=== PATIENT | male | born 1950 | race Caucasian/White ===

== ENCOUNTER 2021-10-29 20:12 | Inpatient (IN) | payer MEDICARE, SELFPAY ==
--- NOTE | ~2021-10-29 | XR_ITS ---
EXAMINATION: XR chest 1V portable EXAM DATE: 10/29/2021 21:24 INDICATION: ams; found unresponsive this P.M;uncommunicative. TECHNIQUE: Portable AP frontal chest x-ray was obtained. There is no prior study for comparison. FINDINGS: There is small to moderate amount of ill-defined bilateral airspace disease suspected, prob ably edema or pneumonia. The cardiac silhouette is enlarged. There is pulmonary vascular congestion. There is no pneumothorax suspected. There are no pleural effusions. There are no osseous abnormalit ies identified. IMPRESSION: 1. Cardiomegaly, congestion. 2. Ill-defined bilateral edema or pneumonia. Reviewed, dictated and finalized at location A. IS MANAGER
--- NOTE | ~2021-10-29 | XR_ITS ---
XR chest 1V portable 11/04/2021 05:43 Indication: CovidPneumonia Procedure: AP portable chest Comparison: 10/29/2021 Findings: Patchy bilateral airspace disease, consistent with pneumonia. Cardiomegaly. No significant effusion or pneumothorax. No acute osseous abnormality. Impression: 1: Patchy bibasilar airspace disease, compatible with pneumonia. No significant change. Reviewed, dictated and finalized at location A. EDICAL ENGINEERING SUPERVISOR Impression: 1: Patchy bibasilar airspace disease, compatible with pneumonia. No significant change.
--- NOTE | ~2021-10-29 | CT_ITS ---
EXAMINATION: CT brain [facility] EXAM DATE: 10/29/2021 21:18 INDICATION: Altered mental status. Slurred speech. TECHNIQUE: Spiral CT of the head was performed without contrast. Axial, coronal and sagittal images were reviewed. The dose-length product (DLP) for this examination was 681.00 mGy-cm. The exposure w as tailored according to patient size, and iterative reconstruction (ASIR) was used as additional dos e reduction technique. There is no prior study for comparison. FINDINGS: There is no acute intraparenchymal hemorrhage. No evidence of intraparenchymal brain mass lesion. No evidence of acute infarction. Please note that initial head CT has limited sensitivity f or small or acute infarctions. Old left thalamic lacunar infarction. There is mild to moderate shruti ventricular and subcortical hypodensity, nonspecific but probably related to small vessel ischemic di sease. There is mild to moderate prominence of the sulci and ventricles related to cerebral atrophy . There is intracranial carotid arteriosclerosis. There are no extra-axial collections. There is no mass effect or midline shift. The orbits are unremarkable. Soft tissue is unremarkable. The vis ualized sinuses and mastoid air cells are well aerated. IMPRESSION: 1. No acute intracranial findings. 2. Chronic age related findings. 3. Punctate old left thalamic lacunar infarction. Reviewed, dictated and finalized at location A. RITY TEAM LEAD
--- NOTE | ~2021-10-29 | US_ITS ---
EXAMINATION: US carotid duplex BI DATE: 10/30/2021 16:55 INDICATION: Altered mental status TECHNIQUE: Grayscale, color Doppler, and pulsed Doppler images of the cervical carotid arteries were obtained. The degree of vessel stenosis is placed in one of the following categories: normal, <50%, 5 0-69%, >=70% but less than near-occlusion, near-occlusion, or total occlusion. Note that percent sten osis relative to normal distal artery lumen diameter is indirectly measured from velocity measurement s as described by Rashel, et al. Radiology 2003; 229:340-346. COMPARISON: None. FINDINGS: RIGHT: The right common carotid artery (CCA) peak systolic velocity (PSV) is 105 cm/s. The right internal ca rotid artery (ICA) PSV is 86 cm/s. The right ICA end-diastolic velocity (EDV) is 24 cm/s. The right I CA/CCA PSV ratio is 0.8. Grayscale and color Doppler images yield an estimate of <50% diameter reduct ion from plaque in the ICA. The external carotid artery (ECA) PSV is 109 cm/s. There is antegrade lyndsey w in the right vertebral artery. LEFT: The left CCA PSV is 93 cm/s. The left ICA PSV is 125 cm/s. The left ICA EDV is 44 cm/s. The left ICA/ CCA PSV ratio is 1.3. Grayscale and color Doppler images are borderline for estimated 50-69% diameter reduction from plaque in the ICA. The ECA PSV is 175 cm/s. There is antegrade flow in the left verte bral artery. IMPRESSION: 1. <50% stenosis in the right internal carotid artery. 2. Borderline velocity criteria for a 50-69% stenosis in the left internal carotid artery. Reviewed, dictated and finalized at location B. ICIAN ASST IMPRESSION: 1. <50% stenosis in the right internal carotid artery. 2. Borderline velocity criteria for a 50-69% stenosis in the left internal [place] tid artery.
[2021-10-29 20:23] VITALS: BP 106/68; PULSE 70; RESP 20; TEMP 37.7; O2SAT 99
--- NOTE | 2021-10-29 20:56 | ECG_ITS ---
Measurements Intervals [place] Rate: 73 P: 71 FL: 194 QRS: -25 QRSD: 113 T: 16 QT: 372 QTc: 411 Interpretive Statements SINUS RHYTHM INTRAVENTRICULAR CONDUCTION DELAY DELAYED PRECORDIAL R/S TRANSITION CONSIDER INFERIOR INFARCT, AGE INDETERMINATE ST ELEVATION IN ANTEROLAT/HIGH LAT LEADS- PROBABLY EARLY REPOLARIZATION ABNORMALITY ABNORMAL ECG Electronically Signed On 10-30-2021 6:20:01 FUNDRAISING SPECIALIST by Monty Mo D.O.
[2021-10-29 21:13] LABS: Basophils Percent Auto 0.4 % (0.2-1.2); Hematocrit 45.2 % (42.0-52.0); Hemoglobin 14.2 g/dL (14.0-18.0); Immature Granulocyte Absolute 0.01 K/mm3 (0.00-0.031); Immature Granulocyte Percent A 0.4 % (0-0.5); Lymphocytes Absolute Auto 0.57 K/mm3 (0.9-3.2); Lymphocytes Percent Auto 24.6 % (18.3-44.2); Mean Corpuscular HGB Conc 31.4 g/dl (32-36); Mean Corpuscular Hemoglobin 22.6 pg (26-34); Mean Corpuscular Volume 71.9 fl (80-100); Mean Platelet Volume 8.4 fl (7.4-10.4); Monocytes Absolute Auto 0.3 K/mm3 (0.1-0.6); Monocytes Percent Auto 11.2 % (2.6-8.5); Neutrophils Absolute Auto 1.5 K/mm3 (1.3-6.7); Neutrophils Percent Auto 63.4 % (45.5-73.1); Platelet Count Result 149 k/mm3 (150-375); Red Blood Count 6.29 M/mm3 (4.6-6.20); Red Cell Distribution Width 19.1 % (11.5-14.5); White Blood Count 2.3 K/mm3 (4.5-10.0)
[2021-10-29 21:24] LABS: Alanine Aminotransferase 43 U/L (4-50); Albumin Level 4.1 g/dL (3.5-5.1); Alkaline Phosphatase 40 U/L (38-126); Anion Gap 10 mmol/L (8-16); Aspartate Amino Transferase 65 U/L (17-59); Bilirubin,Total 0.5 mg/dL (0.2-1.3); Blood Urea Nitrogen 18 mg/dL (9-20); Calcium 8.2 mg/dL (8.4-10.2); Carbon Dioxide 29 mmol/L (22-30); Chloride 91 mmol/L (98-107); Estimated CRCL calculation 52 ml/min; Estimated Glomerular Filt Rate 43; Glucose 96 mg/dL (65-110); Potassium 4.2 mmol/L (3.4-5.0); Sodium 130 mmol/L (137-145)
--- NOTE | 2021-10-29 21:42 | ED.GENADULT ---
HPI - General Adult General Chief complaint: Altered Mental Status Stated complaint: LETHARGIC, NOT SEEN IN A WHILE BY NEIGHBOR Time Seen by Provider: 10/29/21 20:57 Source: patient, EMS and RN notes reviewed History of Present Illness HPI narrative: Patient is brought by EMS because his neighbor has not seen him for 3 days and found him unresponsive. Neighbor called EMS. Patient has no complaint, but does appear confused. He has some chronic right knee pain. Related Data Home Medications Medication Instructions Recorded Confirmed alprazolam 1 mg PO QID 10/30/21 10/30/21 brimonidine [Alphagan P] 1 drp EACH EYE BID 10/30/21 10/30/21 bupropion HCl 300 mg PO DAILY 10/30/21 10/30/21 chorionic gonadotropin, human See Rx Instructions .ROUTE .COMPLEX 10/30/21 10/30/21 [Pregnyl] lisinopril 10 mg PO DAILY 10/30/21 10/30/21 rivaroxaban [Xarelto] 15 mg PO DAILY 10/30/21 10/30/21 sotalol 120 mg PO BID 10/30/21 10/30/21 trazodone 50 mg PO HS 10/30/21 10/30/21 Allergies Allergy/AdvReac Type Severity Reaction Status Date / Time No Known Allergies Allergy Unverified 08/30/14 09:51 Review of Systems Review of Systems: ROS unobtainable: Yes unobtainable due to mental status Musculoskeletal: Musculoskeletal: Reports as per HPI and Reports other (right knee pain) [facility] Past Medical History Medical History (Updated 10/30/21 @ 11:25 by Zoila Davis MD) Atrial fibrillation Chronic anticoagulation CVA (cerebral vascular accident) Punctate old left thalamic lacunar infarct noted on CT 10/30/2021 Glaucoma Surgical History Surgical History (Updated 10/30/21 @ 04:56 by Francine Mcallister DO) Normal colonoscopy (2013) Family History Family History Other Family history of chronic obstructive pulmonary disease Social History Social History (Updated 10/30/21 @ 09:36 by Francine Mcallister DO) Social History: 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 He is . Smoking status: Never smoker Alcohol intake: never Spiritual care concerns: No Exam Const: General: no acute distress and well developed Orientation/consciousness: oriented to person, oriented to place and confusion HENMT: Head: normocephalic Ears: external ears normal General nose exam: Normal external nose present Eyes: General: appearance normal, both eyes and all related structures Conjunctivae: conjunctivae normal Neck: Neck: normal visual inspection and full ROM Chest: Chest palpation & inspection: normal inspection of the chest and no tenderness Resp: Effort & Inspection: normal respiratory effort Auscultation: clear to auscultation bilaterally Cardio: Rate: regular rate Rhythm: regular rhythm GI: GI Palp: No abdominal tenderness and Yes Soft to palpation Skin: General skin exam: normal color and turgor normal Neuro: General: oriented to person, oriented to place and confusion Cognition (Neuro): abnormal cognition Extrem: General: normal to inspection, full ROM and no pedal edema Psych: Appearance: grossly normal Mental Status: mental status grossly normal Affect: normal affect Course Consultations Consultation #1: Discussed with Dr. Mcallister, who agrees to admit. Date: 10/29/21 Time: 23:02 Vital Signs Vital signs: Vital Signs Temperature 37.7 C H 10/29/21 20:23 Pulse Rate 70 10/29/21 20:23 Respiratory Rate 20 10/29/21 20:23 Blood Pressure 106/68 10/29/21 20:23 Pulse Oximetry 99 10/29/21 20:23 Temperature 37.9 C H 10/30/21 09:22 Pulse Rate 77 10/30/21 09:23 Respiratory Rate 16 10/30/21 08:00 Blood Pressure 120/63 10/30/21 08:00 Pulse Oximetry 93 10/30/21 08:00 Medical Decision Making Vital Signs Vital Signs: Vital Signs Temperature 37.7 C H 10/29/21 20:23 Pulse Rate 70 10/29/21 20:23 Respiratory Rate 20 10/29/21 20:23 Blood Pressure 106/68 10/29/21 20:23 Pulse Oximetry 99 10/29/21 20:23 Temperatur
[2021-10-29 21:50] VITALS: BP 104/66; PULSE 72; RESP 23; TEMP 37.5; O2SAT 96
[2021-10-29 22:07] LABS: Ethanol < 10 mg/dL (<10)
[2021-10-29 22:21] LABS: NT Pro B Type Natriuretic Pept 290 pg/mL (5-100)
[2021-10-29 22:34] VITALS: BP 125/84; PULSE 71; RESP 22
[2021-10-29 22:53] LABS: EDCOVIDSCREEN Positive (Negative)
[2021-10-29 23:38] LABS: Add Urine Microscopic? YES; Appearance Urine Clear (Clear); Bacteria Urine Trace /hpf; Bilirubin Urine Negative (Negative); Blood Urine Negative (Negative); Color Urine Amber (Yellow); Glucose Urine UA Negative (Negative); Ketones Urine 1+ mg/dL (Negative); Leukocyte Esterase Ur Negative LEU/UL (Negative); Mucus Urine Heavy /lpf; Nitrate Urine Negative (Negative); Protein Urine 2+ mg/dL (Negative); RBC Urine 0-2 /hpf (0-2); Specific Grav Ur 1.024 (1.001-1.035); Squamous Epithelial Cell Urine Rare /hpf (Few); WBC Urine 0-3 /hpf
[2021-10-29 23:41] LABS: Creatine Kinase 366 U/L (55-170)
[2021-10-29 23:45] VITALS: BP 107/68; PULSE 72; RESP 20
[2021-10-29 23:51] LABS: Amphetamine Screen Urine Negative (Negative); Barbiturate Screen Urine Negative (Negative); Benzodiazepines Screen Urine Positive (Negative); Cannabinoid Screen Urine Negative (Negative); Cocaine Screen Urine Negative (Negative); Methadone Screen Urine Negative (Negative); Opiate Screen Urine Negative (Negative); Phencyclidine Screen Urine Negative (Negative)
[2021-10-30] VITALS (13 sets, daily range): BP systolic 120–136; BP diastolic 63–71; PULSE 68–80; RESP 16–23; TEMP 37.3–37.9; O2SAT 91–99; BMI 35.7
[2021-10-30] MEDS: SODIUM CHLORIDE 0.9% IV 1,000 ML 100 ML IV CONT ×3 (00:57→15:36)
--- NOTE | 2021-10-30 02:12 | PC.NURSE ---
attemted to call report nurse will call back
--- NOTE | 2021-10-30 03:28 | ADMGEN ---
This patient, Deshaun Rolle, was admitted to [facility] Surg Room 307-01. Patient/family oriented to hospital policies and general routines including ID bracelet, bed and alarms, visiting hours, pain management, procedures, bathroom and other care routines, personal items, smoking policy, room service/diet, and visiting hours. Information on how to activate the Rapid Response Team has been discussed. Patient/Family are encouraged to report perceived risks to care and to ask questions if they do not understand what they are told or what they should do.
--- NOTE | 2021-10-30 04:39 | PM.IMHP ---
H&P: HPI History of Present Illness Date/Time: 10/30/21 04:39 Chief Complaint: Found less responsive by neighbor Narrative: 71-year-old male with past medical history of glaucoma, anxiety, hypertension and atrial fibrillation on chronic anticoagulation who was found at home less responsive by a neighbor. Neighbor had called ambulance because he had not seen him for 3 days. When EMS arrived at the patient's home the patient was alert orient x2. The patient was sitting on the sofa somewhat reclining and was responsive to verbal stimuli. He was somewhat lethargic and had slurred speech. On arrival to the ER, the patient was oriented to person and place but thought the month was significantly confused as to the month and year. At the time of my evaluation the patient was lethargic and encephalopathic. He kept falling asleep during my evaluation. He was alert oriented to the month and year but had be prompted answer questions multiple times. The patient could only tell me that he was feeling sick. He could not tell me if he had been having cough for fevers. The patient had just repeated that he was sick. The patient then asked for the urinal. When I handed the patient the urinal he was able to use the urinal without incident. Unfortunately at the same time he also was incontinent of stools. Nursing staff reports that the patient has been incontinent of stool each time he has urinated. He denies having any abdominal pain. He can name the president and knows that he is at [facility]. He is moving all extremities equally and does follow simple commands but has to be prompted several times to do so. He is unable to tell me if he has had any ill contacts. He denies having any pain. Review of Systems Review of Systems: 12 systems were reviewed with pertinent positives and negatives per HPI. Except as documented in the HPI, all other systems were reviewed and are negative. 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 He is . Smoking status: Never smoker Alcohol intake: never Spiritual care concerns: No Meds Home Medications and Allergies Home Medications Medication Instructions Recorded Confirmed Type alprazolam 1 mg PO QID 10/30/21 10/30/21 History brimonidine [Alphagan P] 1 drp EACH EYE BID 10/30/21 10/30/21 History bupropion HCl 300 mg PO DAILY 10/30/21 10/30/21 History chorionic gonadotropin, human See Rx Instructions .ROUTE .COMPLEX 10/30/21 10/30/21 History [Pregnyl] lisinopril 10 mg PO DAILY 10/30/21 10/30/21 History rivaroxaban [Xarelto] 15 mg PO DAILY 10/30/21 10/30/21 History sotalol 120 mg PO BID 10/30/21 10/30/21 History trazodone 50 mg PO HS 10/30/21 10/30/21 History Allergies Allergy/AdvReac Type Severity Reaction Status Date / Time No Known Allergies Allergy Unverified 08/30/14 09:51 Vital Signs Vital Signs - 24 hr 10/29/21 20:23 10/29/21 21:50 10/29/21 22:34 Temperature 99.8 F H 99.5 F Pulse Rate 70 72 71 Respiratory Rate 20 23 H 22 H Blood Pressure 106/68 104/66 125/84 Pulse Oximetry 99 96 10/29/21 23:45 10/30/21 03:05 Temperature 99.5 F Pulse Rate 72 77 Respiratory Rate 20 22 H Blood Pressure 107/68 136/70 Pulse Oximetry 93 Exam Narrative: PHYSICAL EXAM: WEIGHT 116.3 kg BMI 35.8 General: Overweight, no acute distress, intermittent snoring
--- NOTE | 2021-10-30 06:00 | ECHO_ITS ---
Patient Info Name: Deshaun Rolle Age: 71 years : 1950 Gender: Male Ht: 72 in Wt: 260 lbs BSA: 2.49 m2 HR: 69 bpm BP: 136 / 70 mmHg Heart Rhythm: Sinus Rhythm Exam Date: 10/30/2021 11:32 AM Exam Location: [facility] Pulmonary Patient Status: Outpatient Admit Date: 10/29/2021 Staff Ordering Physician: Zoila Davis MD [place] [employer] Operator: Avinash Santillan RDCS, RT Attending Provider: Matilde Saldana PA-C Referring Physician: Ryan COMBS; Exam Type: CA echo doppler color flow Study Info Indications R53.1 - Weakness Complete two-dimensional, color flow and Doppler transthoracic echocardiogram is performed. Summary 1. Complete two-dimensional, color flow and Doppler transthoracic echocardiogram is performed. 2. Difficult study with limited views. Regional wall motion assessment limited due to poor endomyocardial border definition in several views. 3. Left ventricular systolic function is normal, estimated at 55-60%. 4. There is moderately increased left ventricular wall thickness. 5. The left ventricular diastolic function is grade II diastolic dysfunction. 6. Left atrial chamber dimension is moderately enlarged. 7. Unable to estimate PA systolic pressure due to poor spectral resolution of tricuspid regurgitant jet velocity. 8. There is trace mitral valve regurgitation. 9. There is no aortic valve stenosis. Left Ventricle Difficult study with limited views. Regional wall motion assessment limited due to poor endomyocardial border definition in several views. Left ventricular chamber dimension is normal. Left ventricular systolic function is normal, estimated at 55-60%. There is moderately increased left ventricular wall thickness. Left ventricular septal wall motion is abnormal with septal motion related to bundle branch block. The left ventricular diastolic function is grade II diastolic dysfunction. Right Ventricle Right ventricular chamber dimension is normal. Right ventricular systolic function is normal. Left Atria Left atrial chamber dimension is moderately enlarged. Right Atria Right atrial chamber dimension is not well visualized. Aortic Valve The aortic valve is not well visualized. There is mild aortic valve sclerosis. There is no aortic valve stenosis. There is trace aortic valve regurgitation. Pulmonic Valve The pulmonic valve is not well visualized. There is trace pulmonic regurgitation. Mitral Valve The mitral valve has thickened leaflets. There is trace mitral valve regurgitation. The mitral valve annulus is moderately calcified. Tricuspid Valve The tricuspid valve leaflets are not well visualized. Unable to estimate PA systolic pressure due to poor spectral resolution of tricuspid regurgitant jet velocity. Pericardium/Pleural The pericardium appears normal. There is trivial pericardial effusion. Inferior Vena Cava Normal inferior vena cava with >50% collapse upon inspiration consistent with normal right atrial pressure, 5 mmHg. Aorta The aortic root size at the sinus of Valsalva is mildly dilated at 4.[address] chest if clinically indicated. Left Ventricular Outflow Tract Name Value Normal LVOT 2D LVOT Diameter 2.1 cm LVOT D
[2021-10-30 07:20] LABS: Alanine Aminotransferase 35 U/L (4-50); Albumin Level 3.5 g/dL (3.5-5.1); Alkaline Phosphatase 41 U/L (38-126); Anion Gap 8 mmol/L (8-16); Aspartate Amino Transferase 53 U/L (17-59); Bilirubin,Total 0.5 mg/dL (0.2-1.3); Blood Urea Nitrogen 15 mg/dL (9-20); Calcium 7.7 mg/dL (8.4-10.2); Carbon Dioxide 27 mmol/L (22-30); Chloride 94 mmol/L (98-107); Estimated CRCL calculation 62 ml/min; Estimated Glomerular Filt Rate 55; Glucose 94 mg/dL (65-110); Potassium 3.8 mmol/L (3.4-5.0); Sodium 129 mmol/L (137-145)
[2021-10-30 07:33] LABS: Hematocrit 42.2 % (42.0-52.0); Hemoglobin 13.3 g/dL (14.0-18.0); Mean Corpuscular HGB Conc 31.5 g/dl (32-36); Mean Corpuscular Hemoglobin 22.4 pg (26-34); Mean Platelet Volume 9.1 fl (7.4-10.4); Platelet Count Result 161 k/mm3 (150-375); Red Blood Count 5.94 M/mm3 (4.6-6.20); Red Cell Distribution Width 18.6 % (11.5-14.5)
[2021-10-30 07:46] LABS: White Blood Count 1.7 K/mm3 (4.5-10.0)
[2021-10-30 08:40] LABS: CRP 6.4 mg/dL (<1.0); Creatine Kinase 361 U/L (55-170); Lactate Dehydrogenase 597 U/L (313-618)
[2021-10-30] MEDS: BRIMONIDINE TARTRATE 0.1% 5 ML OPHTH DROPS 1 DROP EACH EYE ×2 (09:22→17:11)
[2021-10-30] MEDS: buPROPion HCL XL (24 HR) 150 MG TABCR 300 MG PO (09:22)
[2021-10-30] MEDS: ACETAMINOPHEN 325 MG TABLET 650 MG PO (09:22)
[2021-10-30] MEDS: lisinopriL 10 MG TABLET PO (09:23)
[2021-10-30] MEDS: SOTALOL HCL 40 MG TABLET 120 MG PO ×2 (09:23→17:11)
[2021-10-30 09:50] LABS: Creatinine Urine 79.1 mg/dL
[2021-10-30 10:19] LABS: Sodium Urine Random 90 meq/L
--- NOTE | 2021-10-30 11:56 | PM.IMPN ---
Progress Note: A&P Assessment and Plan (1) Pneumonia due to COVID-19 virus: Code(s): U07.1 - COVID-19; J12.82 - Pneumonia due to coronavirus disease 2019 Status: Acute Assessment and Plan: Positive COVID antigen test on 10/29/2021. Symptom onset unclear. CXR showed ill-defined bilateral pneumonia vs edema Continue isolation precautions Supplemental O2 as needed with goal sats 92% or above. He is not hypoxic and has no oxygen requirements, thus holding dexamethasone and remdesivir Supportive care to include bronchodilators, expectorants, antipyretics, incentive spirometry Vaccination status unknown (2) Acute renal failure: Qualifiers: Acute renal failure type: unspecified Qualified Code(s): N17.9 - Acute kidney failure, unspecified Code(s): N17.9 - Acute kidney failure, unspecified Status: Acute Assessment and Plan: Creatinine elevated at 1.6 at presentation. Improved to 1.3 with IV fluids. IV fluids have now been discontinued Likely related to dehydration Encourage oral intake Monitor renal function closely (3) Acute confusion due to medical condition: Code(s): F05 - Delirium due to known physiological condition Status: Acute Assessment and Plan: Patient is drowsy. He is oriented to self and location. Can state president. Cannot state year. Etiology for this not entirely clear at this time. 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 He has no documented history of dementia. Possibly related to underlying infection, possibly worsened by EMIL which has resolved. Concern for possible hypercapnia in light of apneic episodes. Obtain stat ABG. Appreciate RT evaluation Presented with slurred speech (not appreciated on my exam). He refuses MRI though is exhibiting confusion. Echo and carotid doppler pending. Acute CVA less likely based on clinical evaluation. He has no focal deficits. Could consider repeat head CT tomorrow if patient agreeable Check TSH, B12, folate, ammonia (4) Electrolyte abnormality: Code(s): E87.8 - Other disorders of electrolyte and fluid balance, not elsewhere classified Status: Acute Assessment and Plan: CMP reviewed Sodium slightly low at 129. Possibly due to dehydration. Repeat this afternoon to assess for improvement following IV fluids Calcium slightly low at 7.7. Improved to 8.1 when corrected for low end of normal albumin levels. Repeat BMP this afternoon Subjective Date/time seen: 10/30/21 11:56 Interval history: Date of service: 10/30/2021 Deshaun Rolle is 71 old male with a history of atrial fibrillation on chronic anticoagulation, CVA, glaucoma who is seen in follow-up for COVID-19 pneumonia and altered mental status. He is somewhat confused. Several times during the encounter he fell asleep mid response with witnessed apneic episode and snoring. He was having an echo completed during my evaluation and the technologist noted he had several episodes similar prior to my arrival. The patient wasnt able to provide much of a reliable history. He did tell me he has had diarrhea. He denies shortness breath, cough, or chest pain. He denies urinary symptoms. He denies speech changes, visual changes, loss of coordination or balance, weakness, dizziness, or lightheadedness. Denies dysphagia. He is quite adamant about his refusal to proceed with MRI. He states that he would prefer to do nothing and would like to go home. He was able to answer most questions appropriately but could not recall the year. He looked around in the room and at the white board, and after quite some time he responded ?it seems I cannot remember. Review of Systems Review of Systems: All systems reviewed & are unremarkable except as noted in HPI and below Exam Narrative: Mr. Rolle is an obese, well-appearing 71-year-old male who is lying supine in bed. He appears comfortable and is in
[2021-10-30 12:21] LABS: Alveolar/Arterial O2 Gradient 53.9 mmHg; Base Excess ABG 1.9 mEq/l (+/-2.0); Fractional Inspired Oxygen 21 %; HCO3 ABG 27.3 mEq/l (22.0-26.0); PCO2 ABG 45.6 mmHg (35.0-45.0); PO2 FiO2 Ratio Arterial Blood 1.96 %; pH ABG 7.395 (7.350-7.450)
[2021-10-30 12:22] LABS: Oxygen Saturation ABG 76.1 % (95.0-100.0); Oxyhemoglobin 76.6 % THb (90.0-100.0); PO2 ABG 41.2 mmHg (80.0-100.0)
[2021-10-30 12:23] LABS: Device ROOM AIR; Modified Allen's Test Pass; Site Drawn RIGHT RADIAL
[2021-10-30 13:02] LABS: Anion Gap 6 mmol/L (8-16); Blood Urea Nitrogen 14 mg/dL (9-20); Calcium 7.7 mg/dL (8.4-10.2); Carbon Dioxide 28 mmol/L (22-30); Chloride 95 mmol/L (98-107); Estimated CRCL calculation 62 ml/min; Estimated Glomerular Filt Rate 55; Glucose 98 mg/dL (65-110); Potassium 3.8 mmol/L (3.4-5.0); Sodium 129 mmol/L (137-145)
[2021-10-30 13:03] LABS: Ammonia < 9 umol/L (9-30)
[2021-10-30 14:23] LABS: Folic Acid 14.9 ng/mL (2.76->20); Vitamin B12 > 1000.0 pg/mL (239-931)
[2021-10-30] MEDS: RIVAROXABAN 15 MG TABLET PO (17:11)
[2021-10-30] MEDS: traZODone HCL 50 MG TABLET PO (20:13)
--- NOTE | 2021-10-30 23:06 | PCRCNOTE ---
Patient refused apnea link.
[2021-10-31] VITALS (10 sets, daily range): BP systolic 110–155; BP diastolic 61–84; PULSE 68–80; RESP 18–22; TEMP 36.7–38; O2SAT 94–100
[2021-10-31] MEDS: SODIUM CHLORIDE 0.9% IV 1,000 ML 100 ML IV CONT ×2 (04:48→20:39)
[2021-10-31 07:40] LABS: Hematocrit 43.2 % (42.0-52.0); Hemoglobin 13.4 g/dL (14.0-18.0); Mean Corpuscular Hemoglobin 22.3 pg (26-34); Mean Platelet Volume 9.2 fl (7.4-10.4); Platelet Count Result 151 k/mm3 (150-375); Red Cell Distribution Width 19.1 % (11.5-14.5)
[2021-10-31 07:54] LABS: Alanine Aminotransferase 29 U/L (4-50); Albumin Level 3.5 g/dL (3.5-5.1); Alkaline Phosphatase 39 U/L (38-126); Anion Gap 7 mmol/L (8-16); Aspartate Amino Transferase 44 U/L (17-59); Bilirubin,Total 0.5 mg/dL (0.2-1.3); Blood Urea Nitrogen 12 mg/dL (9-20); Calcium 7.8 mg/dL (8.4-10.2); Carbon Dioxide 29 mmol/L (22-30); Chloride 96 mmol/L (98-107); Estimated CRCL calculation 62 ml/min; Estimated Glomerular Filt Rate 55; Glucose 90 mg/dL (65-110); Sodium 132 mmol/L (137-145)
[2021-10-31 08:38] LABS: White Blood Count 1.7 K/mm3 (4.5-10.0)
[2021-10-31] MEDS: BRIMONIDINE TARTRATE 0.1% 5 ML OPHTH DROPS 1 DROP EACH EYE ×2 (08:47→17:33)
[2021-10-31] MEDS: SOTALOL HCL 40 MG TABLET 120 MG PO ×2 (08:47→17:33)
[2021-10-31] MEDS: lisinopriL 10 MG TABLET PO (08:47)
[2021-10-31] MEDS: buPROPion HCL XL (24 HR) 150 MG TABCR 300 MG PO (08:47)
--- NOTE | 2021-10-31 11:32 | P.PNIM_ITS ---
Progress Note: A&P Assessment and Plan (1) Pneumonia due to COVID-19 virus: Code(s): U07.1 - COVID-19; J12.82 - Pneumonia due to coronavirus disease 2019 Status: Acute Assessment and Plan: Positive COVID antigen test on 10/29/2021. Symptom onset 3 days prior. CXR showed ill-defined bilateral pneumonia vs edema * Continue isolation precautions * Confirmatory PCR test pending * Supplemental O2 as needed with goal sats 92% or above. Hypoxic this afternoon. Will start dexamethasone and remdesivir * Supportive care to include bronchodilators, expectorants, antipyretics, incentive spirometry * Low grade fever related to COVID. 100.4 this morning but resolved * He reports completing vaccination for COVID but cannot recall when (2) Hypoxia: Code(s): R09.02 - Hypoxemia Status: Acute Assessment and Plan: Noted to be 85% on room air this afternoon. * Placed on 5 L and immediately improved to 97% * Will proceed with 2 L supplemental O2 as he is maintaining adequate sats with this * Continuous pulse ox and wean O2 as tolerated * Given hypoxia will initiate dexamethasone and remdesivir (3) Acute renal failure: Qualifiers: Acute renal failure type: unspecified Qualified Code(s): N17.9 - Acute kidney failure, unspecified Code(s): N17.9 - Acute kidney failure, unspecified Status: Acute Assessment and Plan: Creatinine elevated at 1.6 at presentation. Likely related to dehydration * Improved to 1.3 with IV fluid rehydration which has since been discontinued. * Encourage oral intake * Monitor renal function closely (4) Acute confusion due to medical condition: Code(s): F05 - Delirium due to known physiological condition Status: Acute Assessment and Plan: Patient was found poorly responsive A&Ox2. Mental status has improved today and he is able to answer questions more appropriately. Answers all orientation correctly besides he cannot state the year. * Possibly related to acute illness with COVID19 * Head CT with no acute findings with old left thalamic infarct. * He has no documented history of dementia. His daughter reports he is typically A&Ox4 and does not exhibit confusion/forgetfulness * Possibly related to hypoxia. ABG reviewed which did show hypoxia though RT noted possibly a mixed sample. He has been intermittently hypoxic and now requiring O2. No hypercapnia. No further apneic episodes today and patient is more alert. Refused apnea link last night. * Presented with slurred speech (not appreciated on my exam). Head CT with no acute findings. Refused MRI. Carotid doppler with 50-69% stenosis of left ICA. Proceed with CTA head/neck today. Acute CVA less likely based on clinical evaluation. He has no focal deficits. Echo reviewed with no significant valvular disease * TSH, B12, folate, ammonia, reviewed and within normal limits (5) Electrolyte abnormality: Code(s): E87.8 - Other disorders of electrolyte and fluid balance, not elsewhere classified Status: Acute Assessment and Plan: CMP reviewed * Sodium improved to 132 with IV fluids. Encourage PO intake * Calcium slightly low at 7.8. Improved to 8.2 when corrected for albumin . * Monitor closely (6) Atrial fibrillation: Code(s): I48.91 - Unspecified atrial fibrillation Status: Inactive Assessment and Plan: Daughter reports patient underwent cardioversion 2 weeks ago. * Tele reviewed and patient is in NSR. DC tele * Continue sotalol * Continue xarelto (7) Leukopenia:
--- NOTE | 2021-10-31 11:32 | PM.IMPN ---
Progress Note: A&P Assessment and Plan (1) Pneumonia due to COVID-19 virus: Code(s): U07.1 - COVID-19; J12.82 - Pneumonia due to coronavirus disease 2019 Status: Acute Assessment and Plan: Positive COVID antigen test on 10/29/2021. Symptom onset 3 days prior. CXR showed ill-defined bilateral pneumonia vs edema Continue isolation precautions Confirmatory PCR test pending Supplemental O2 as needed with goal sats 92% or above. Hypoxic this afternoon. Will start dexamethasone and remdesivir Supportive care to include bronchodilators, expectorants, antipyretics, incentive spirometry Low grade fever related to COVID. 100.4 this morning but resolved He reports completing vaccination for COVID but cannot recall when (2) Hypoxia: Code(s): R09.02 - Hypoxemia Status: Acute Assessment and Plan: Noted to be 85% on room air this afternoon. Placed on 5 L and immediately improved to 97% Will proceed with 2 L supplemental O2 as he is maintaining adequate sats with this Continuous pulse ox and wean O2 as tolerated Given hypoxia will initiate dexamethasone and remdesivir (3) Acute renal failure: Qualifiers: Acute renal failure type: unspecified Qualified Code(s): N17.9 - Acute kidney failure, unspecified Code(s): N17.9 - Acute kidney failure, unspecified Status: Acute Assessment and Plan: Creatinine elevated at 1.6 at presentation. Likely related to dehydration Improved to 1.3 with IV fluid rehydration which has since been discontinued. Encourage oral intake Monitor renal function closely (4) Acute confusion due to medical condition: Code(s): F05 - Delirium due to known physiological condition Status: Acute Assessment and Plan: Patient was found poorly responsive A&Ox2. Mental status has improved today and he is able to answer questions more appropriately. Answers all orientation correctly besides he cannot state the year. 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 He has no documented history of dementia. His daughter reports he is typically A&Ox4 and does not exhibit confusion/forgetfulness Possibly related to hypoxia. ABG reviewed which did show hypoxia though RT noted possibly a mixed sample. He has been intermittently hypoxic and now requiring O2. No hypercapnia. No further apneic episodes today and patient is more alert. Refused apnea link last night. Presented with slurred speech (not appreciated on my exam). Head CT with no acute findings. Refused MRI. Carotid doppler with 50-69% stenosis of left ICA. Proceed with CTA head/neck today. Acute CVA less likely based on clinical evaluation. He has no focal deficits. Echo reviewed with no significant valvular disease TSH, B12, folate, ammonia, reviewed and within normal limits (5) Electrolyte abnormality: Code(s): E87.8 - Other disorders of electrolyte and fluid balance, not elsewhere classified Status: Acute Assessment and Plan: CMP reviewed Sodium improved to 132 with IV fluids. Encourage PO intake Calcium slightly low at 7.8. Improved to 8.2 when corrected for albumin . Monitor closely (6) Atrial fibrillation: Code(s): I48.91 - Unspecified atrial fibrillation Status: Inactive Assessment and Plan: Daughter reports patient underwent cardioversion 2 weeks ago. Tele reviewed and patient is in NSR. DC tele Continue sotalol Continue xarelto (7) Leukopenia: Code(s): D72.819 - Decreased white blood cell count, unspecified Status: Acute Assessment and Plan: WBC 1.7. May be related to viral illness. COVID PCR and influenza pending ANC is 1074.4 Discussed case with hematology and appreciate recommendations. No need for prophylaxis at this time. (8) Polycythemia vera: Code(s): D45 - Polycythemia vera Status: Inactive
[2021-10-31 12:42] LABS: Influenza Control Positive
[2021-10-31] MEDS: REMDESIVIR 200 MG/NS 250 ML 200 MG/250 ML BAG 250 MG IVPB (14:54)
[2021-10-31] MEDS: DEXAMETHASONE 2 MG TABLET 6 MG PO (15:39)
[2021-10-31 15:42] LABS: Basophils Percent Auto 0.6 % (0.2-1.2); Lymphocytes Absolute Auto 0.47 K/mm3 (0.9-3.2); Monocytes Absolute Auto 0.2 K/mm3 (0.1-0.6); Monocytes Percent Auto 9.2 % (2.6-8.5); Neutrophils Absolute Auto 1.1 K/mm3 (1.3-6.7); Neutrophils Percent Auto 63.2 % (45.5-73.1)
[2021-10-31] MEDS: RIVAROXABAN 15 MG TABLET PO (17:34)
[2021-10-31] MEDS: traZODone HCL 50 MG TABLET PO (20:39)
[2021-10-31 20:49] LABS: SARS-CoV-2 RNA PCR Positive
[2021-10-31 23:09] LABS: Anisocytosis 1+ (NORMAL); Platelet Estimate Adequate (Adequate); Poikilocytosis 1+ (NORMAL)
[2021-11-01] VITALS (8 sets, daily range): BP systolic 112–143; BP diastolic 14–81; PULSE 61–73; RESP 12–20; TEMP 36.2–36.6; O2SAT 90–98
[2021-11-01] MEDS: SODIUM CHLORIDE 0.9% IV 1,000 ML 100 ML IV CONT (05:06)
[2021-11-01 08:56] LABS: Hematocrit 46.8 % (42.0-52.0); Hemoglobin 14.3 g/dL (14.0-18.0); Lymphocytes Absolute Auto 0.33 K/mm3 (0.9-3.2); Lymphocytes Percent Auto 26.2 % (18.3-44.2); Mean Corpuscular HGB Conc 30.6 g/dl (32-36); Mean Corpuscular Hemoglobin 22.4 pg (26-34); Mean Corpuscular Volume 73.4 fl (80-100); Mean Platelet Volume 8.7 fl (7.4-10.4); Monocytes Absolute Auto 0.2 K/mm3 (0.1-0.6); Monocytes Percent Auto 15.9 % (2.6-8.5); Neutrophils Absolute Auto 0.7 K/mm3 (1.3-6.7); Neutrophils Percent Auto 57.9 % (45.5-73.1); Platelet Count Result 149 k/mm3 (150-375); Red Blood Count 6.38 M/mm3 (4.6-6.20); Red Cell Distribution Width 19.6 % (11.5-14.5)
[2021-11-01 09:06] LABS: INR 1.3; Prothrombin Time 15.8 Seconds (11.1-14.7)
[2021-11-01 09:13] LABS: Sodium 136 mmol/L (137-145)
[2021-11-01 09:25] LABS: White Blood Count 1.3 K/mm3 (4.5-10.0)
[2021-11-01] MEDS: BRIMONIDINE TARTRATE 0.1% 5 ML OPHTH DROPS 1 DROP EACH EYE ×2 (09:42→17:13)
[2021-11-01] MEDS: SOTALOL HCL 40 MG TABLET 120 MG PO ×2 (09:42→17:13)
[2021-11-01] MEDS: buPROPion HCL XL (24 HR) 150 MG TABCR 300 MG PO (09:43)
[2021-11-01] MEDS: lisinopriL 10 MG TABLET PO (09:43)
[2021-11-01] MEDS: REMDESIVIR 100 MG/NS 250 ML 100 MG/250 ML BAG 250 MG IVPB (09:47)
[2021-11-01 10:36] LABS: Alanine Aminotransferase 26 U/L (4-50); Albumin Level 3.4 g/dL (3.5-5.1); Alkaline Phosphatase 40 U/L (38-126); Anion Gap 7 mmol/L (8-16); Aspartate Amino Transferase 39 U/L (17-59); Bilirubin,Total 0.4 mg/dL (0.2-1.3); Blood Urea Nitrogen 13 mg/dL (9-20); CRP 6.8 mg/dL (<1.0); Calcium 7.9 mg/dL (8.4-10.2); Carbon Dioxide 29 mmol/L (22-30); Chloride 100 mmol/L (98-107); Estimated CRCL calculation 73 ml/min; Estimated Glomerular Filt Rate > 60; Glucose 121 mg/dL (65-110); Potassium 4.5 mmol/L (3.4-5.0)
[2021-11-01] MEDS: DEXAMETHASONE 2 MG TABLET 6 MG PO (11:58)
--- NOTE | 2021-11-01 14:36 | P.PNIM_ITS ---
Progress Note: A&P Assessment and Plan (1) Acute respiratory failure with hypoxia: Code(s): J96.01 - Acute respiratory failure with hypoxia Status: Acute Assessment and Plan: ABG on 10/30 showed patient to be hypoxemic and he desatted to 85% on 10/31. Secondary to COVID-19 pneumonia. * Continue supplemental O2 as needed with goal saturations 92% or above. * Currently requiring 3 L per nasal cannula (2) Pneumonia due to COVID-19 virus: Code(s): U07.1 - COVID-19; J12.82 - Pneumonia due to coronavirus disease 2019 Status: Acute Assessment and Plan: Positive COVID antigen test on 10/29/2021 and positive PCR on 10/31. Symptom onset 3 days prior. CXR showed ill-defined bilateral pneumonia vs edema * Continue isolation precautions * Supplemental O2 as needed with goal sats 92% or above. * Continue dexamethasone and remdesivir #2 today. Monitor LFTs. ALT is within normal limits. * Supportive care to include bronchodilators, expectorants, antipyretics, incentive spirometry * Low grade fever related to COVID, 100.4 yesterday morning. Afebrile today. * He reports completing vaccination for COVID but cannot recall when. (3) Acute renal failure: Qualifiers: Acute renal failure type: unspecified Qualified Code(s): N17.9 - Acute kidney failure, unspecified Code(s): N17.9 - Acute kidney failure, unspecified Status: Acute Assessment and Plan: Creatinine elevated at 1.6 at presentation. Likely related to dehydration * Improved with IV fluid rehydration which has since been discontinued. * Creatinine 1.1 today * Encourage oral intake * Monitor renal function closely (4) Acute confusion due to medical condition: Code(s): F05 - Delirium due to known physiological condition Status: Acute Assessment and Plan: Patient was found poorly responsive A&Ox2 prior to presentation. Mental status has improved today, he is answering all questions appropriately and is A&Ox4. Not really exhibiting confusion in conversation other than he cannot recall if he got his COVID booster. * Possibly related to acute illness with COVID19 and/or hypoxia. O2 sats stable today and patient is improved. 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 * He has no documented history of dementia. His daughter reports he is typically A&Ox4 and does not exhibit confusion/forgetfulness * Presented with slurred speech (not appreciated on my exam). Head CT with no acute findings. Refused MRI. Carotid doppler with 50-69% stenosis of left ICA. Recommended CTA head/neck, patient refuses (see subjective). Acute CVA less likely based on clinical evaluation. He has no focal deficits. Echo reviewed with no significant valvular disease * TSH, B12, folate, ammonia, reviewed and within normal limits (5) Electrolyte abnormality: Code(s): E87.8 - Other disorders of electrolyte and fluid balance, not elsewhere classified Status: Acute Assessment and Plan: CMP reviewed * Sodium improved to 136 * Calcium slightly low at 7.9. Improved to 8.4 when corrected for albumin . * Monitor closely (6) Atrial fibrillation: Code(s): I48.91 - Unspecified atrial fibrillation Status: Inactive Assessment and Plan: Patient underwent cardioversion 2 weeks ago. * Patient monitored on telemetry for 24 hours and remained in normal sinus rhythm. * Rate is controlled. * Continue sotalol * Continue xarelto (7) Leukopenia: Code(s): D72.819 - Decreased white blood cell count, unspecified
--- NOTE | 2021-11-01 14:36 | PM.IMPN ---
Progress Note: A&P Assessment and Plan (1) Acute respiratory failure with hypoxia: Code(s): J96.01 - Acute respiratory failure with hypoxia Status: Acute Assessment and Plan: ABG on 10/30 showed patient to be hypoxemic and he desatted to 85% on 10/31. Secondary to COVID-19 pneumonia. Continue supplemental O2 as needed with goal saturations 92% or above. Currently requiring 3 L per nasal cannula (2) Pneumonia due to COVID-19 virus: Code(s): U07.1 - COVID-19; J12.82 - Pneumonia due to coronavirus disease 2019 Status: Acute Assessment and Plan: Positive COVID antigen test on 10/29/2021 and positive PCR on 10/31. Symptom onset 3 days prior. CXR showed ill-defined bilateral pneumonia vs edema Continue isolation precautions Supplemental O2 as needed with goal sats 92% or above. Continue dexamethasone and remdesivir #2 today. Monitor LFTs. ALT is within normal limits. Supportive care to include bronchodilators, expectorants, antipyretics, incentive spirometry Low grade fever related to COVID, 100.4 yesterday morning. Afebrile today. He reports completing vaccination for COVID but cannot recall when. (3) Acute renal failure: Qualifiers: Acute renal failure type: unspecified Qualified Code(s): N17.9 - Acute kidney failure, unspecified Code(s): N17.9 - Acute kidney failure, unspecified Status: Acute Assessment and Plan: Creatinine elevated at 1.6 at presentation. Likely related to dehydration Improved with IV fluid rehydration which has since been discontinued. Creatinine 1.1 today Encourage oral intake Monitor renal function closely (4) Acute confusion due to medical condition: Code(s): F05 - Delirium due to known physiological condition Status: Acute Assessment and Plan: Patient was found poorly responsive A&Ox2 prior to presentation. Mental status has improved today, he is answering all questions appropriately and is A&Ox4. Not really exhibiting confusion in conversation other than he cannot recall if he got his COVID booster. Possibly related to acute illness with COVID19 and/or hypoxia. O2 sats stable today and patient is improved. 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 He has no documented history of dementia. His daughter reports he is typically A&Ox4 and does not exhibit confusion/forgetfulness Presented with slurred speech (not appreciated on my exam). Head CT with no acute findings. Refused MRI. Carotid doppler with 50-69% stenosis of left ICA. Recommended CTA head/neck, patient refuses (see subjective). Acute CVA less likely based on clinical evaluation. He has no focal deficits. Echo reviewed with no significant valvular disease TSH, B12, folate, ammonia, reviewed and within normal limits (5) Electrolyte abnormality: Code(s): E87.8 - Other disorders of electrolyte and fluid balance, not elsewhere classified Status: Acute Assessment and Plan: CMP reviewed Sodium improved to 136 Calcium slightly low at 7.9. Improved to 8.4 when corrected for albumin . Monitor closely (6) Atrial fibrillation: Code(s): I48.91 - Unspecified atrial fibrillation Status: Inactive Assessment and Plan: Patient underwent cardioversion 2 weeks ago. Patient monitored on telemetry for 24 hours and remained in normal sinus rhythm. Rate is controlled. Continue sotalol Continue xarelto (7) Leukopenia: Code(s): D72.819 - Decreased white blood cell count, unspecified Status: Acute Assessment and Plan: WBC 1.3. May be related to viral illness ANC is 752 Discussed case with hematology and appreciate recommendations. Hematology to see patient tomorrow Recheck CBC with diff and ANC tomorrow. Consider neupogen if ANC <1000 tomorrow, per hematology recommendations (8) Polycythemia vera: Code(s): D45 - Polycythemia vera Status: Inacti
[2021-11-01] MEDS: RIVAROXABAN 15 MG TABLET PO (17:15)
[2021-11-01] MEDS: traZODone HCL 50 MG TABLET PO (20:30)
[2021-11-01] MEDS: ALPRAZolam (*CRX) 0.5 MG TABLET 1 MG PO (22:16)
[2021-11-02] VITALS (8 sets, daily range): BP systolic 113–142; BP diastolic 66–82; PULSE 60–70; RESP 14–20; TEMP 36.4–36.8; O2SAT 90–96
[2021-11-02 06:58] LABS: Hematocrit 45.5 % (42.0-52.0); Hemoglobin 13.9 g/dL (14.0-18.0); Immature Granulocyte Absolute 0.01 K/mm3 (0.00-0.031); Immature Granulocyte Percent A 0.5 % (0-0.5); Lymphocytes Absolute Auto 0.43 K/mm3 (0.9-3.2); Mean Corpuscular HGB Conc 30.5 g/dl (32-36); Mean Corpuscular Hemoglobin 22.2 pg (26-34); Mean Corpuscular Volume 72.7 fl (80-100); Mean Platelet Volume 9.2 fl (7.4-10.4); Monocytes Absolute Auto 0.3 K/mm3 (0.1-0.6); Monocytes Percent Auto 15.1 % (2.6-8.5); Neutrophils Absolute Auto 1.3 K/mm3 (1.3-6.7); Neutrophils Percent Auto 63.4 % (45.5-73.1); Platelet Count Result 187 k/mm3 (150-375); Red Blood Count 6.26 M/mm3 (4.6-6.20); Red Cell Distribution Width 19.5 % (11.5-14.5); White Blood Count 2.1 K/mm3 (4.5-10.0)
[2021-11-02 07:08] LABS: INR 1.5; Prothrombin Time 17.7 Seconds (11.1-14.7)
[2021-11-02 07:13] LABS: Alanine Aminotransferase 26 U/L (4-50); Albumin Level 3.3 g/dL (3.5-5.1); Alkaline Phosphatase 37 U/L (38-126); Anion Gap 5 mmol/L (8-16); Aspartate Amino Transferase 38 U/L (17-59); Bilirubin,Total 0.5 mg/dL (0.2-1.3); Blood Urea Nitrogen 18 mg/dL (9-20); CRP 4.2 mg/dL (<1.0); Calcium 8.3 mg/dL (8.4-10.2); Carbon Dioxide 32 mmol/L (22-30); Chloride 99 mmol/L (98-107); Estimated CRCL calculation 88 ml/min; Estimated Glomerular Filt Rate > 60; Glucose 117 mg/dL (65-110); Potassium 4.3 mmol/L (3.4-5.0); Sodium 136 mmol/L (137-145)
[2021-11-02] MEDS: DEXAMETHASONE 2 MG TABLET 6 MG PO (10:16)
[2021-11-02] MEDS: BRIMONIDINE TARTRATE 0.1% 5 ML OPHTH DROPS 1 DROP EACH EYE ×2 (10:17→17:43)
[2021-11-02] MEDS: SOTALOL HCL 40 MG TABLET 120 MG PO (10:17)
[2021-11-02] MEDS: lisinopriL 10 MG TABLET PO (10:17)
[2021-11-02] MEDS: buPROPion HCL XL (24 HR) 150 MG TABCR 300 MG PO (10:17)
[2021-11-02] MEDS: REMDESIVIR 100 MG/NS 250 ML 100 MG/250 ML BAG 250 MG IVPB (10:19)
--- NOTE | 2021-11-02 14:28 | PM.IMPN ---
Progress Note: A&P Assessment and Plan (1) Acute respiratory failure with hypoxia: Code(s): J96.01 - Acute respiratory failure with hypoxia Status: Acute Assessment and Plan: ABG on 10/30 showed patient to be hypoxemic and he desatted to 85% on 10/31. Secondary to COVID-19 pneumonia. Continue supplemental O2 as needed with goal saturations 92% or above. Currently requiring 3 L per nasal cannula (2) Pneumonia due to COVID-19 virus: Code(s): U07.1 - COVID-19; J12.82 - Pneumonia due to coronavirus disease 2019 Status: Acute Assessment and Plan: Positive COVID antigen test on 10/29/2021 and positive PCR on 10/31. Symptom onset 5-7 days prior. CXR showed ill-defined bilateral pneumonia vs edema Continue isolation precautions Supplemental O2 as needed with goal sats 92% or above. Continue dexamethasone and remdesivir #3 today. Monitor LFTs. ALT is within normal limits. Supportive care to include bronchodilators, expectorants, antipyretics, incentive spirometry He reports completing vaccination for COVID but cannot recall when. (3) Acute renal failure: Qualifiers: Acute renal failure type: unspecified Qualified Code(s): N17.9 - Acute kidney failure, unspecified Code(s): N17.9 - Acute kidney failure, unspecified Status: Acute Assessment and Plan: Creatinine elevated at 1.6 at presentation. Likely related to dehydration Improved with IV fluid rehydration which has since been discontinued. Creatinine 0.9 today Encourage oral intake Monitor renal function closely (4) Acute confusion due to medical condition: Code(s): F05 - Delirium due to known physiological condition Status: Acute Assessment and Plan: Patient was found poorly responsive A&Ox2 prior to presentation. Mental status has improved today, he is answering all questions appropriately and is A&Ox4. Possibly related to acute illness with COVID19 and/or hypoxia. O2 sats stable today and patient is improved. 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 He has no documented history of dementia. His daughter reports he is typically A&Ox4 and does not exhibit confusion/forgetfulness Presented with slurred speech (not appreciated on my exam). Head CT with no acute findings. Refused MRI. Carotid doppler with 50-69% stenosis of left ICA. Recommended CTA head/neck, patient strongly refused. Acute CVA less likely based on clinical evaluation. He has no focal deficits. Echo reviewed with no significant valvular disease TSH, B12, folate, ammonia, reviewed and within normal limits (5) Electrolyte abnormality: Code(s): E87.8 - Other disorders of electrolyte and fluid balance, not elsewhere classified Status: Acute Assessment and Plan: CMP reviewed. Resolved. Sodium improved to 136 Calcium levels have improved (6) Atrial fibrillation: Code(s): I48.91 - Unspecified atrial fibrillation Status: Inactive Assessment and Plan: Patient underwent cardioversion 2 weeks ago. Patient monitored on telemetry for 24 hours and remained in normal sinus rhythm. Rate is controlled. Continue sotalol Continue xarelto (7) Leukopenia: Code(s): D72.819 - Decreased white blood cell count, unspecified Status: Acute Assessment and Plan: WBC increased to 2.1 today May be related to viral illness ANC is 1331. Yesterday was <1000 Discussed case with hematology and appreciate recommendations. Awaiting consultation (8) Polycythemia vera: Code(s): D45 - Polycythemia vera Status: Inactive Assessment and Plan: Reports history of PV, followed by legal compliance officer at [facility] Hgb 13.9, Hct 45.5 today Continue to monitor CBC with diff Appreciate hematology consultation Subjective Date/time seen: 11/02/21 14:28 Interval history: Date of service: 11/02/2021 Deshaun Rolle is 71 old male
--- NOTE | 2021-11-02 14:28 | P.PNIM_ITS ---
Progress Note: A&P Assessment and Plan (1) Acute respiratory failure with hypoxia: Code(s): J96.01 - Acute respiratory failure with hypoxia Status: Acute Assessment and Plan: ABG on 10/30 showed patient to be hypoxemic and he desatted to 85% on 10/31. Secondary to COVID-19 pneumonia. * Continue supplemental O2 as needed with goal saturations 92% or above. * Currently requiring 3 L per nasal cannula (2) Pneumonia due to COVID-19 virus: Code(s): U07.1 - COVID-19; J12.82 - Pneumonia due to coronavirus disease 2019 Status: Acute Assessment and Plan: Positive COVID antigen test on 10/29/2021 and positive PCR on 10/31. Symptom onset 5-7 days prior. CXR showed ill-defined bilateral pneumonia vs edema * Continue isolation precautions * Supplemental O2 as needed with goal sats 92% or above. * Continue dexamethasone and remdesivir #3 today. Monitor LFTs. ALT is within normal limits. * Supportive care to include bronchodilators, expectorants, antipyretics, incentive spirometry * He reports completing vaccination for COVID but cannot recall when. (3) Acute renal failure: Qualifiers: Acute renal failure type: unspecified Qualified Code(s): N17.9 - Acute kidney failure, unspecified Code(s): N17.9 - Acute kidney failure, unspecified Status: Acute Assessment and Plan: Creatinine elevated at 1.6 at presentation. Likely related to dehydration * Improved with IV fluid rehydration which has since been discontinued. * Creatinine 0.9 today * Encourage oral intake * Monitor renal function closely (4) Acute confusion due to medical condition: Code(s): F05 - Delirium due to known physiological condition Status: Acute Assessment and Plan: Patient was found poorly responsive A&Ox2 prior to presentation. Mental status has improved today, he is answering all questions appropriately and is A&Ox4. * Possibly related to acute illness with COVID19 and/or hypoxia. O2 sats stable today and patient is improved. 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 * He has no documented history of dementia. His daughter reports he is typically A&Ox4 and does not exhibit confusion/forgetfulness * Presented with slurred speech (not appreciated on my exam). Head CT with no acute findings. Refused MRI. Carotid doppler with 50-69% stenosis of left ICA. Recommended CTA head/neck, patient strongly refused. Acute CVA less likely based on clinical evaluation. He has no focal deficits. Echo reviewed with no significant valvular disease * TSH, B12, folate, ammonia, reviewed and within normal limits (5) Electrolyte abnormality: Code(s): E87.8 - Other disorders of electrolyte and fluid balance, not elsewhere classified Status: Acute Assessment and Plan: CMP reviewed. Resolved. * Sodium improved to 136 * Calcium levels have improved (6) Atrial fibrillation: Code(s): I48.91 - Unspecified atrial fibrillation Status: Inactive Assessment and Plan: Patient underwent cardioversion 2 weeks ago. * Patient monitored on telemetry for 24 hours and remained in normal sinus rhythm. * Rate is controlled. * Continue sotalol * Continue xarelto (7) Leukopenia: Code(s): D72.819 - Decreased white blood cell count, unspecified Status: Acute Assessment and Plan: WBC increased to 2.1 today * May be related to viral illness * ANC is 1331. Yesterday was <1000 * Discussed case with hematology and appreciate recommendations. Awaiting cons
--- NOTE | 2021-11-02 17:23 | PDONCCN ---
HPI - Date of Consult Date/Time: 11/02/21 17:23 Requesting Physician: Matilde Saldana PA-C Primary Care Provider: Christina Blakely, - Consult Narrative Reason for consult: Leukopenia Narrative: Deshaun Rolle is a 71 year old male with history of hypertension, atrial fibrillation on chronic anticoagulation therapy found to be unresponsive by the neighbor and brought into the hospital. On admission he was found to be lethargic and having slurred speech. He was also confused. He has some cough without much shortness of breath on arrival to the hospital. Head CT showed no acute intracranial findings. Chest x-ray showed ill-defined bilateral edema or pneumonia. Labs showed WBC count of 2.3 and dropped down to as low as 1.3. Patient was diagnosed with COVID-19 positive pneumonia. He received remdesivir as well as dexamethasone. His oxygen saturation remains good. Denies any fevers and chills. No other new complaints. Review of Systems - Review of Systems All systems reviewed & are unremarkable except as noted in HPI and bel - Neurologic Reports confusion [facility] Medical History: Medical History (Last Updated 10/31/21 @ 12:05 by Matilde Saldana PA-C) Atrial fibrillation Chronic anticoagulation CVA (cerebral vascular accident) Punctate old left thalamic lacunar infarct noted on CT 10/30/2021 Glaucoma Polycythemia vera Surgical History: Surgical History (Last Updated 10/30/21 @ 04:56 by Francine Mcallister DO) Normal colonoscopy Onset Date: 2013 Family History: Family History (Last Reviewed 10/30/21 @ 04:51 by Francine Mcallister DO) Other Family history of chronic obstructive pulmonary disease - Social History Social History: Social History (Last Updated 10/30/21 @ 09:36 by Francine Mcallister DO) Alcohol Use: Alcohol intake: never Others: Spiritual care concerns: No Smoking Status: Smoking status: Never smoker Meds Home Medications Medication Instructions Recorded Confirmed Type alprazolam 1 mg PO QID 10/30/21 10/30/21 History brimonidine [Alphagan P] 1 drp EACH EYE BID 10/30/21 10/30/21 History bupropion HCl 300 mg PO DAILY 10/30/21 10/30/21 History chorionic gonadotropin, human See Rx Instructions .ROUTE .COMPLEX 10/30/21 10/30/21 History [Pregnyl] lisinopril 10 mg PO DAILY 10/30/21 10/30/21 History rivaroxaban [Xarelto] 15 mg PO DAILY 10/30/21 10/30/21 History sotalol 120 mg PO BID 10/30/21 10/30/21 History trazodone 50 mg PO HS 10/30/21 10/30/21 History Allergies Allergy/AdvReac Type Severity Reaction Status Date / Time No Known Allergies Allergy Unverified 08/30/14 09:51 Results - Labs CBC & Chem 7: 11/02/21 06:34 11/02/21 06:34 Labs: Short CBC 11/02/21 Range/Units 06:34 WBC 2.1 L (4.5-10.0) K/mm3 Hgb 13.9 L (14.0-18.0) g/dL Hct 45.5 (42.0-52.0) % Plt Count 187 (150-375) k/mm3 BMP 11/02/21 06:34 Sodium 136 L Potassium 4.3 Chloride 99 Carbon Dioxide 32 H BUN 18 Creatinine 0.90 Glucose 117 H Calcium 8.3 L Liver Function 11/02/21 Range/Units 06:34 Total Bilirubin 0.5 (0.2-1.3) mg/dL AST 38 (17-59) U/L ALT 26 (4-50) U/L Alkaline Phosphatase 37 L (38-126) U/L Albumin 3.3 L (3.5-5.1) g/dL Assessment and Plan - Additional Plan Leukopenia and neutropenia. Patient is a pleasant 71 oral old male brought into the hospital by the neighbor after being found unresponsive. Chest x-ray showed likely pneumonia. He has been treated for COVID-19 pneumonia. His WBC count was down to 1.3 and all slowly improving at 2.1. ANC has improved to 1300. He is slowly recovering from his pneumonia and feeling better. Likely neutropenia secondary to COVID infection and viral pneumonia. I expect slow improvement. No need for prophylactic antibiotics or growth factor support as ANC is more than 1000 currently. I have left my office information for the pat
[2021-11-02] MEDS: SOTALOL HCL 80 MG TABLET PO (17:43)
[2021-11-02] MEDS: SOTALOL HCL 40 MG TABLET PO (17:43)
[2021-11-02] MEDS: RIVAROXABAN 15 MG TABLET PO (17:44)
[2021-11-02] MEDS: traZODone HCL 50 MG TABLET PO (20:08)
[2021-11-02] MEDS: ALPRAZolam (*CRX) 0.5 MG TABLET 1 MG PO (21:07)
[2021-11-03] VITALS: BP 103/60; PULSE 59; RESP 20; TEMP 36.7; O2SAT 90
[2021-11-03 04:00] VITALS: BP 119/71; PULSE 66; RESP 18; TEMP 36.7; O2SAT 90
[2021-11-03 08:00] VITALS: BP 123/81; PULSE 71; RESP 14; TEMP 36.8; O2SAT 92
[2021-11-03 08:16] LABS: Alanine Aminotransferase 28 U/L (4-50); Albumin Level 3.6 g/dL (3.5-5.1); Alkaline Phosphatase 42 U/L (38-126); Anion Gap 4 mmol/L (8-16); Aspartate Amino Transferase 38 U/L (17-59); Bilirubin,Total 0.5 mg/dL (0.2-1.3); Blood Urea Nitrogen 20 mg/dL (9-20); CRP 2.8 mg/dL (<1.0); Calcium 8.6 mg/dL (8.4-10.2); Carbon Dioxide 33 mmol/L (22-30); Chloride 99 mmol/L (98-107); Estimated CRCL calculation 80 ml/min; Estimated Glomerular Filt Rate > 60; Glucose 94 mg/dL (65-110); Sodium 136 mmol/L (137-145)
[2021-11-03 08:42] LABS: Basophils Percent Auto 0.3 % (0.2-1.2); Hematocrit 44.6 % (42.0-52.0); Immature Granulocyte Absolute 0.01 K/mm3 (0.00-0.031); Immature Granulocyte Percent A 0.3 % (0-0.5); Lymphocytes Absolute Auto 0.61 K/mm3 (0.9-3.2); Lymphocytes Percent Auto 15.4 % (18.3-44.2); Mean Corpuscular HGB Conc 31.4 g/dl (32-36); Mean Corpuscular Hemoglobin 22.1 pg (26-34); Mean Corpuscular Volume 70.3 fl (80-100); Mean Platelet Volume 9.8 fl (7.4-10.4); Monocytes Absolute Auto 0.5 K/mm3 (0.1-0.6); Monocytes Percent Auto 11.3 % (2.6-8.5); Neutrophils Absolute Auto 2.9 K/mm3 (1.3-6.7); Neutrophils Percent Auto 72.7 % (45.5-73.1); Platelet Count Result 233 k/mm3 (150-375); Red Blood Count 6.34 M/mm3 (4.6-6.20); Red Cell Distribution Width 19.2 % (11.5-14.5)
[2021-11-03 08:56] LABS: INR 1.5
[2021-11-03] MEDS: SOTALOL HCL 40 MG TABLET PO ×2 (09:09→16:48)
[2021-11-03] MEDS: buPROPion HCL XL (24 HR) 150 MG TABCR 300 MG PO (09:09)
[2021-11-03] MEDS: lisinopriL 10 MG TABLET PO (09:09)
[2021-11-03] MEDS: BRIMONIDINE TARTRATE 0.1% 5 ML OPHTH DROPS 1 DROP EACH EYE ×2 (09:09→16:49)
[2021-11-03] MEDS: DEXAMETHASONE 2 MG TABLET 6 MG PO (09:09)
[2021-11-03] MEDS: SOTALOL HCL 80 MG TABLET PO ×2 (09:09→16:48)
[2021-11-03] MEDS: REMDESIVIR 100 MG/NS 250 ML 100 MG/250 ML BAG 250 MG IVPB (11:09)
[2021-11-03 12:00] VITALS: BP 134/82; PULSE 67; RESP 14; TEMP 36.8; O2SAT 95
--- NOTE | 2021-11-03 14:31 | P.PNIM_ITS ---
Progress Note: A&P Assessment and Plan (1) Acute respiratory failure with hypoxia: Code(s): J96.01 - Acute respiratory failure with hypoxia Status: Acute Assessment and Plan: Secondary to COVID-19 pneumonia. Patient noted to be hypoxic down to 85% and was hypoxemic on ABG * Continue supplemental O2 as needed with goal saturations 92% or above. * Currently requiring 3 L per nasal cannula (2) Pneumonia due to COVID-19 virus: Code(s): U07.1 - COVID-19; J12.82 - Pneumonia due to coronavirus disease 2019 Status: Acute Assessment and Plan: Positive COVID antigen test on 10/29/2021 and positive PCR on 10/31. Symptom onset 5-7 days prior. CXR showed ill-defined bilateral pneumonia vs edema * Continue isolation precautions * Supplemental O2 as needed with goal sats 92% or above. * Continue dexamethasone and remdesivir #4 today. Monitor LFTs. ALT is within n ormal limits. * Supportive care to include bronchodilators, expectorants, antipyretics, incentive spirometry * He reports completing vaccination for COVID but cannot recall when. * Will repeat CXR tomorrow to reassess (3) Acute renal failure: Qualifiers: Acute renal failure type: unspecified Qualified Code(s): N17.9 - Acute kidney failure, unspecified Code(s): N17.9 - Acute kidney failure, unspecified Status: Acute Assessment and Plan: Creatinine elevated at 1.6 at presentation. Likely related to dehydration * Improved with IV fluid rehydration which has since been discontinued. * Creatinine 1.0 today * Encourage oral intake * Monitor renal function closely (4) Acute confusion due to medical condition: Code(s): F05 - Delirium due to known physiological condition Status: Acute Assessment and Plan: Resolved. Patient was found poorly responsive A&Ox2 prior to presentation. He is now A&Ox4 and answering all questions appropriately. * Possibly related to acute illness with COVID19 and/or hypoxia. O2 sats stable today and patient is improved. 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 * He has no documented history of dementia. His daughter reports he is typically A&Ox4 and does not exhibit confusion/forgetfulness * Presented with slurred speech (not appreciated on my exam). Head CT with no acute findings. Refused MRI. Carotid doppler with 50-69% stenosis of left ICA. Recommended CTA head/neck, patient strongly refused. Acute CVA less likely based on clinical evaluation. He has no focal deficits. Echo reviewed with no significant valvular disease. He will need PCP follow up for further monitoring. Discussed with patient again today who requests outpatient follow up. * TSH, B12, folate, ammonia, reviewed and within normal limits (5) Electrolyte abnormality: Code(s): E87.8 - Other disorders of electrolyte and fluid balance, not elsewhere classified Status: Acute Assessment and Plan: CMP reviewed. Resolved. * Sodium improved to 136 * Calcium levels normalized (6) Atrial fibrillation: Code(s): I48.91 - Unspecified atrial fibrillation Status: Inactive Assessment and Plan: Patient underwent cardioversion 2 weeks ago. * Patient monitored on telemetry for 24 hours and remained in normal sinus rhythm. * Rate is controlled. * Continue sotalol * Continue xarelto (7) Leukopenia: Code(s): D72.819 - Decreased white blood cell count, unspecified Status: Acute Assessment and Plan: WBC increased to 4.0 today * Likely related to
--- NOTE | 2021-11-03 14:31 | PM.IMPN ---
Progress Note: A&P Assessment and Plan (1) Acute respiratory failure with hypoxia: Code(s): J96.01 - Acute respiratory failure with hypoxia Status: Acute Assessment and Plan: Secondary to COVID-19 pneumonia. Patient noted to be hypoxic down to 85% and was hypoxemic on ABG Continue supplemental O2 as needed with goal saturations 92% or above. Currently requiring 3 L per nasal cannula (2) Pneumonia due to COVID-19 virus: Code(s): U07.1 - COVID-19; J12.82 - Pneumonia due to coronavirus disease 2019 Status: Acute Assessment and Plan: Positive COVID antigen test on 10/29/2021 and positive PCR on 10/31. Symptom onset 5-7 days prior. CXR showed ill-defined bilateral pneumonia vs edema Continue isolation precautions Supplemental O2 as needed with goal sats 92% or above. Continue dexamethasone and remdesivir #4 today. Monitor LFTs. ALT is within normal limits. Supportive care to include bronchodilators, expectorants, antipyretics, incentive spirometry He reports completing vaccination for COVID but cannot recall when. Will repeat CXR tomorrow to reassess (3) Acute renal failure: Qualifiers: Acute renal failure type: unspecified Qualified Code(s): N17.9 - Acute kidney failure, unspecified Code(s): N17.9 - Acute kidney failure, unspecified Status: Acute Assessment and Plan: Creatinine elevated at 1.6 at presentation. Likely related to dehydration Improved with IV fluid rehydration which has since been discontinued. Creatinine 1.0 today Encourage oral intake Monitor renal function closely (4) Acute confusion due to medical condition: Code(s): F05 - Delirium due to known physiological condition Status: Acute Assessment and Plan: Resolved. Patient was found poorly responsive A&Ox2 prior to presentation. He is now A&Ox4 and answering all questions appropriately. Possibly related to acute illness with COVID19 and/or hypoxia. O2 sats stable today and patient is improved. 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 He has no documented history of dementia. His daughter reports he is typically A&Ox4 and does not exhibit confusion/forgetfulness Presented with slurred speech (not appreciated on my exam). Head CT with no acute findings. Refused MRI. Carotid doppler with 50-69% stenosis of left ICA. Recommended CTA head/neck, patient strongly refused. Acute CVA less likely based on clinical evaluation. He has no focal deficits. Echo reviewed with no significant valvular disease. He will need PCP follow up for further monitoring. Discussed with patient again today who requests outpatient follow up. TSH, B12, folate, ammonia, reviewed and within normal limits (5) Electrolyte abnormality: Code(s): E87.8 - Other disorders of electrolyte and fluid balance, not elsewhere classified Status: Acute Assessment and Plan: CMP reviewed. Resolved. Sodium improved to 136 Calcium levels normalized (6) Atrial fibrillation: Code(s): I48.91 - Unspecified atrial fibrillation Status: Inactive Assessment and Plan: Patient underwent cardioversion 2 weeks ago. Patient monitored on telemetry for 24 hours and remained in normal sinus rhythm. Rate is controlled. Continue sotalol Continue xarelto (7) Leukopenia: Code(s): D72.819 - Decreased white blood cell count, unspecified Status: Acute Assessment and Plan: WBC increased to 4.0 today Likely related to viral illness Discussed case with hematology and appreciate recommendations. ANC >1000 and no need for prophylactic antibiotic therapy (8) Polycythemia vera: Code(s): D45 - Polycythemia vera Status: Inactive Assessment and Plan: Reports history of PV, followed by cnmt at [facility] Hgb 14.0, Hct 44.6 today Continue to monitor CBC with diff Follow up with patient's cnmt as
[2021-11-03 16:00] VITALS: BP 129/80; PULSE 69; RESP 16; TEMP 36.9; O2SAT 94
[2021-11-03] MEDS: RIVAROXABAN 15 MG TABLET PO (16:48)
[2021-11-03 20:00] VITALS: BP 128/77; PULSE 71; RESP 18; TEMP 36.6; O2SAT 93
[2021-11-03] MEDS: ALPRAZolam (*CRX) 0.5 MG TABLET 1 MG PO (20:05)
[2021-11-03] MEDS: traZODone HCL 50 MG TABLET PO (20:05)
[2021-11-04] VITALS (8 sets, daily range): BP systolic 116–159; BP diastolic 52–92; PULSE 57–91; RESP 16–20; TEMP 36.2–36.6; O2SAT 89–94
[2021-11-04 06:49] LABS: Hematocrit 45.6 % (42.0-52.0); Hemoglobin 14.1 g/dL (14.0-18.0); Immature Granulocyte Absolute 0.03 K/mm3 (0.00-0.031); Immature Granulocyte Percent A 0.7 % (0-0.5); Lymphocytes Absolute Auto 0.73 K/mm3 (0.9-3.2); Lymphocytes Percent Auto 17.5 % (18.3-44.2); Mean Corpuscular HGB Conc 30.9 g/dl (32-36); Mean Corpuscular Hemoglobin 21.8 pg (26-34); Mean Corpuscular Volume 70.4 fl (80-100); Mean Platelet Volume 9.4 fl (7.4-10.4); Monocytes Absolute Auto 0.5 K/mm3 (0.1-0.6); Neutrophils Percent Auto 70.8 % (45.5-73.1); Platelet Count Result 258 k/mm3 (150-375); Red Blood Count 6.48 M/mm3 (4.6-6.20); Red Cell Distribution Width 19.4 % (11.5-14.5); White Blood Count 4.2 K/mm3 (4.5-10.0)
[2021-11-04 06:58] LABS: Alanine Aminotransferase 48 U/L (4-50); Albumin Level 3.6 g/dL (3.5-5.1); Alkaline Phosphatase 47 U/L (38-126); Anion Gap 8 mmol/L (8-16); Aspartate Amino Transferase 66 U/L (17-59); Bilirubin,Total 0.6 mg/dL (0.2-1.3); Blood Urea Nitrogen 21 mg/dL (9-20); Calcium 8.7 mg/dL (8.4-10.2); Carbon Dioxide 28 mmol/L (22-30); Chloride 98 mmol/L (98-107); Estimated CRCL calculation 80 ml/min; Estimated Glomerular Filt Rate > 60; Glucose 88 mg/dL (65-110); Potassium 4.2 mmol/L (3.4-5.0); Sodium 134 mmol/L (137-145)
[2021-11-04 07:14] LABS: INR 1.4; Prothrombin Time 17.1 Seconds (11.1-14.7)
[2021-11-04] MEDS: SOTALOL HCL 40 MG TABLET PO (09:08)
[2021-11-04] MEDS: buPROPion HCL XL (24 HR) 150 MG TABCR 300 MG PO (09:08)
[2021-11-04] MEDS: DEXAMETHASONE 2 MG TABLET 6 MG PO (09:08)
[2021-11-04] MEDS: SOTALOL HCL 80 MG TABLET PO (09:09)
[2021-11-04] MEDS: lisinopriL 10 MG TABLET PO (09:09)
[2021-11-04] MEDS: BRIMONIDINE TARTRATE 0.1% 5 ML OPHTH DROPS 1 DROP EACH EYE (09:09)
[2021-11-04] MEDS: REMDESIVIR 100 MG/NS 250 ML 100 MG/250 ML BAG 250 MG IVPB (10:10)
--- NOTE | 2021-11-04 11:07 | PCRCNOTE ---
Home o2 evaluation is complete. Pt does not require home oxygen at this time. Pts resting rate was 67 and 94% O2 while exercising they dropped to 89% and 91 pulse but recovered quickly on their own and did not need o2
--- NOTE | 2021-11-04 11:39 | PM.DS ---
DS: Admitting Diagnosis Discharge Date 11/04/2021 Admitting Diagnosis Altered mental status DS: Discharge Diagnosis Discharge Diagnosis (1) Acute respiratory failure with hypoxia: Code(s): J96.01 - Acute respiratory failure with hypoxia Status: Acute Assessment and Plan: Secondary to COVID-19 pneumonia. Patient noted to be hypoxic down to 85% and was hypoxemic on ABG. Required up to 3 L supplemental O2 but was able to be weaned to room air. Home oxygen evaluation performed prior to discharge with no oxygen requirements. (2) Pneumonia due to COVID-19 virus: Code(s): U07.1 - COVID-19; J12.82 - Pneumonia due to coronavirus disease 2018 Status: Acute Assessment and Plan: Positive COVID antigen test on 10/29/2021 and positive PCR on 10/31. Symptom onset 5-7 days prior. CXR showed ill-defined bilateral pneumonia vs edema. He completed 5 days of dexamethasone and remdesivir. He was able to be weaned from oxygen. Supportive care provided. Repeat CXR showed stable pneumonia. COVID precautions discussed. (3) Acute renal failure: Qualifiers: Acute renal failure type: unspecified Qualified Code(s): N17.9 - Acute kidney failure, unspecified Code(s): N17.9 - Acute kidney failure, unspecified Status: Acute Assessment and Plan: Creatinine elevated at 1.6 at presentation. Likely related to dehydration. Improved with IV fluid rehydration and creatinine normalized. (4) Acute confusion due to medical condition: Code(s): F05 - Delirium due to known physiological condition Status: Acute Assessment and Plan: Resolved. Patient was found poorly responsive A&Ox2 prior to presentation. Likely related to acute illness and/or hypoxia. 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 He has no documented history of dementia. His daughter reports he is typically A&Ox4 and does not exhibit confusion/forgetfulness. Presented with slurred speech per admitting provider (not appreciated on my exam). Head CT with no acute findings. Refused MRI. Carotid doppler with 50-69% stenosis of left ICA. Recommended CTA head/neck, patient strongly refused. Acute CVA less likely based on clinical evaluation. He had no focal deficits. Echo reviewed with no significant valvular disease. He will need PCP follow up for further monitoring of his suspected carotid artery disease. TSH, B12, folate, ammonia, reviewed and within normal limits. Mental status improved and patient remained A&Ox4. (5) Electrolyte abnormality: Code(s): E87.8 - Other disorders of electrolyte and fluid balance, not elsewhere classified Status: Acute Assessment and Plan: Hyponatremia and hypocalcemia resolved. (6) Atrial fibrillation: Code(s): I48.91 - Unspecified atrial fibrillation Status: Inactive Assessment and Plan: Patient underwent cardioversion 2 weeks ago. Patient monitored on telemetry for 24 hours and remained in normal sinus rhythm. Rate controlled. Continue sotalol. Continue xarelto (7) Leukopenia: Code(s): D72.819 - Decreased white blood cell count, unspecified Status: Acute Assessment and Plan: Patient with leukopenia with WBC down to 1.3. ANC was monitored. Patient seen in consultation by hematology. [place] to be secondary to acute viral illness. WBC improved and was 4.2 at time of discharge. (8) Polycythemia vera: Code(s): D45 - Polycythemia vera Status: Inactive Assessment and Plan: Reports history of PV, followed by driller portable at [facility]. Hemoglobin and hematocrit monitored daily and were within normal limits. Follow up with patient's driller portable as an outpatient DS: Summary Hospital Course Hospital Course: Date of admission: 10/29/2021 Date of discharge: 11/04/2021 Deshaun Rolle is 71 old male with a history of atrial fibrillation on chronic anticoagulation, CVA, glaucoma prese
== END 2021-11-04 12:29 | disposition home or self-care (01) | DRG 177 ==
LOC: ANHED 21:25 → ANH3MEDSUR 10-30 01:41
PROVIDERS: Physician Assistant; Admitting Provider Internal Medicine; Emergency Provider Emergency Medicine; PCP Family Medicine; Visit Provider Internal Medicine
DX: U07.1 COVID-19 (principal); J12.82 Pneumonia due to coronavirus disease 2019; J96.01 Acute respiratory failure with hypoxia; M62.82 Rhabdomyolysis; N17.9 Acute kidney failure, unspecified; F05 Delirium due to known physiological condition; I48.91 Unspecified atrial fibrillation; H40.9 Unspecified glaucoma; E87.8 Other disorders of electrolyte and fluid balance, not elsewhere classified; D72.819 Decreased white blood cell count, unspecified; D45 Polycythemia vera; Z79.01 Long term (current) use of anticoagulants; Z79.899 Other long term (current) drug therapy; Z86.73 Personal history of transient ischemic attack (TIA), and cerebral infarction without residual deficits
CPT/HCPCS: 36415; 36600; 70450; 71045; 80048; 80053; 80307; 81001; 82140; 82550; 82570; 82607; 82728; 82746; 82805; 83615; 83880; 84300; 84443; 85025; 85027; 85610; 86140; 87040; 87426; 87804; 93005; 93306; 93880; 94618; 96360; 96361; 99285; A9270; C9803; G0378; J7030; J8540; U0003; U0005

== ENCOUNTER 2023-07-21 11:21 | Emergency (ER) | payer OTHER, SELFPAY ==
[2023-07-21 11:32] VITALS: BP 118/74; PULSE 82; RESP 20; TEMP 36.8; O2SAT 96
[2023-07-21 11:45] VITALS: BP 111/91; PULSE 153; RESP 20; O2SAT 97
--- NOTE | 2023-07-21 12:59 | PC.NURSE ---
Pt observed being confuse, refused care and treatment, removed bp monitor, dish technician and O2 monitor. Pt said 'I do not want to be here,I am going home , pt is keep getting out of bed. Pt signed AMA form, and walked to the exit with unsteady gait, refused wc.
[2023-07-21 13:02] VITALS: BP 118/74; PULSE 153; RESP 20; O2SAT 100
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
== END 2023-07-21 13:06 | disposition left against medical advice (07) ==
LOC: ANHED 12:17
PROVIDERS: Emergency Provider General Practice; PCP Family Medicine
DX: I48.91 Unspecified atrial fibrillation (principal); V43.52XA Car driver injured in collision with other type car in traffic accident, initial encounter; Z79.01 Long term (current) use of anticoagulants
CPT/HCPCS: 99281